=== PATIENT | female | born 1965 | race Caucasian/White ===

== ENCOUNTER 2017-01-06 07:11 | Emergency (ER) | payer OTHER ==
[2017-01-06 07:17] VITALS: RESP 18
[2017-01-06 07:55] LABS: RBC URINE < 1 /hpf (0-3); URINE BACTERIA RARE (<OCC); URINE BILIRUBIN NEGATIVE (NEGATIVE); URINE BLOOD NEGATIVE (NEGATIVE); URINE COLOR Yellow (YELLOW); URINE GLUCOSE (UA) NORMAL (Normal); URINE KETONE NEGATIVE (NEGATIVE); URINE LEUKOCYTE ESTERASE NEG Leu/uL (Negative); URINE PROTEIN NEGATIVE (NEGATIVE); URINE UROBILINOGEN NORMAL mg/dL (0.2-1.0); WBC URINE 1 /hpf (0-5)
[2017-01-06] MEDS ORDERED: Oxycodone/Acetaminophen 5/325 mg Tab PO STA (08:33)
[2017-01-06] MEDS ORDERED: Oxycodone/Acetaminophen 5/325 mg Tab ONE (08:41)
--- NOTE | 2017-01-06 10:10 | RAD ---
PROCEDURE: Radiographs of the Lumbar Spine. HISTORY: back pain COMPARISON: No prior. FINDINGS: BONES: Straightening of the normal lumbar lordosis is noted No fracture subluxation suggested. Endplate ridging L5 and minimal Schmorl's node indentations at all lump at L2-3 L3-4 and L4-5 is suggested. DISC SPACES: L5-S1 disc space narrowing OTHER FINDINGS: Moderate right stool retention IMPRESSION: No fracture or subluxation. Lumbar spine straightening Degenerative disc space narrowing and mild degenerative spondylosis L5-S1.
--- NOTE | 2017-01-06 10:34 | C.PDOC ---
History Of Present Illness 51 year old female presents to the ED with complaints of lower back pain for the past 2 days. Patient states she was seen by her PMD 2 days ago and was diagnosed with a UTI and given Cipro and Motrin. She has been compliant with the medication but now developed the back pain which is worse with movement. Denies pelvic pain, dysuria, radiation or pain, or any other complaints at this time. Time Seen by Provider: 01/06/17 08:03 Chief Complaint (Nursing): Back Pain History Per: Patient History/Exam Limitations: no limitations Onset/Duration Of Symptoms: Days Current Symptoms Are (Timing): Still Present Quality Of Discomfort: "Pain" Severity: Mild Associated Symptoms: None Exacerbating Factor(s): Movement Past Medical History Reviewed: Historical Data, Nursing Documentation, Vital Signs Vital Signs: Last Vital Signs Temp 97.8 F 01/06/17 11:15 Pulse 65 01/06/17 11:15 Resp 18 01/06/17 11:15 BP 128/81 01/06/17 11:15 Pulse Ox 100 01/06/17 11:15 - Medical History PMH: No Chronic Diseases Surgical History: Family History: States: Unknown Family Hx - Social History Hx Tobacco Use: No Hx Alcohol Use: No Hx Substance Use: No - Immunization History Hx Tetanus Toxoid Vaccination: No Hx Influenza Vaccination: No Hx Pneumococcal Vaccination: No Review Of Systems Except As Marked, All Systems Reviewed And Found Negative. Constitutional: Negative for: Fever, Chills Gastrointestinal: Negative for: Nausea, Vomiting, Abdominal Pain Genitourinary: Negative for: Dysuria, Frequency, Incontinence, Pelvic Pain Musculoskeletal: Positive for: Back Pain Neurological: Negative for: Weakness, Numbness Physical Exam - Physical Exam Appears: Non-toxic, No Acute Distress Skin: Normal Color, Warm, Dry Head: Atraumatic, Normacephalic Eye(s): bilateral: Normal Inspection Oral Mucosa: Moist Neck: Supple Chest: Symmetrical, No Deformity Cardiovascular: Rhythm Regular, No Murmur Respiratory: Normal Breath Sounds, No Accessory Muscle Use Gastrointestinal/Abdominal: Soft, No Tenderness Back: No CVA Tenderness, No Vertebral Tenderness, Paraspinal Tenderness (+ Bilateral paraspinal tenderness ), Other (+Difficulty bending, turning, and changing position.) Extremity: Normal ROM, No Deformity Neurological/Psych: Oriented x3, Normal Speech, Normal Cognition ED Course And Treatment O2 Sat by Pulse Oximetry: 98 (Room air) Pulse Ox Interpretation: Normal - Other Rad LS Spine AP/LAT X-Ray: Viewed By Me, Read By Radiologist Interpretation: Accession No. : [id number]. Patient Name / ID : SUSY CARRILLO / [id number]. Exam Date : 01/06/2017 08:40:53 ( Approved ). Study Comment : Sex / Age : F / 51Y. Creator : KARLIE FREDERICK. Dictator : Michelle Garcia V. Car Sweeper : Personal Lines Account Manager : Michelle Garcia V. Approver2 : Report Date : 01/06/2017 09:18:50. My Comment : *. PROCEDURE: Radiographs of the Lumbar Spine. HISTORY: back pain. COMPARISON: No prior. FINDINGS: BONES: Straightening of the normal lumbar lordosis is noted. No fracture subluxation suggested. Endplate ridging L5 and minimal Schmorl's node indentations at all lump at L2-3 L3-4 and L4-5 is suggested. DISC SPACES: L5-S1 disc space narrowing. OTHER FINDINGS: Moderate right stool retention. IMPRESSION: No fracture or subluxation. Lumbar spine straightening. Degenerative disc space narrowing and mild degenerative spondylosis L5-S1. Progress Note: LS Spine AP/LAT and Urinalysis ordered and reviewed. Patient treated with Percocet and Toradol. On reassessment, patient is resting comfortably, with improvement of back pain. Patient remains afebrile, with no bony tenderness, extremity numbness or weakness, or abdominal pain. Patient is ambulatory in the emergency department with no signs of discomfort. Rx given and patient was advised to follow up with her PMD in 1-2 days. Disposition - Disposition Referrals: Luis Araujo Jr., MD [Staff Provider] - Disposition: HOME/ ROUTINE Disposition Time: 11:05 Condition: STABLE Additional Instructions: Follow up with your PMD within 1-2 days. Return to ED if feel worse. 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 - Scribe Statement The provider has reviewed the documentation as recorded by the Scribe Sugar Gunn. All medical record entries made by the Scribe were at my direction and personally dictated by me. I have reviewed the chart and agree that the record accurately reflects my personal performance of the history, physical exam, medical decision making, and the department course for this patient. I have also personally directed, reviewed, and agree with the discharge instructions and disposition.
[2017-01-06 11:16] VITALS: BP 128/81; PULSE 65; TEMP 97.8
[2017-01-06 15:07] VITALS: O2SAT 98
== END 2017-01-06 11:19 | disposition home or self-care (01) ==
LOC: C.ER 07:11
DX: M54.5 Low back pain (principal)
CPT/HCPCS: 72100; 81001; 84703; 96372; 99285; J1885

== ENCOUNTER 2017-05-25 19:03 | Emergency (ER) | payer OTHER ==
[2017-05-25 20:36] VITALS: BP 169/91; PULSE 78; RESP 16; TEMP 97.9; O2SAT 98
[2017-05-25] MEDS ORDERED: DiphenhydrAMINE 50 mg/ml Inj IVP STA (20:45)
[2017-05-25] MEDS ORDERED: Sodium Chloride 0.9% 1,000 ML IV ONE (20:46)
[2017-05-25] MEDS ORDERED: DiphenhydrAMINE 50 mg/ml Inj ONE (20:58)
[2017-05-25] MEDS ORDERED: Sodium Chloride 0.9% 1,000 ML ONE (20:59)
--- NOTE | 2017-05-25 21:01 | C.PDOC ---
History Of Present Illness 52 yo female c/o bilateral eye swelling associated with discharge for 4 days. (+ ) sneezing (+) congestion. Notes she has been using Patanol drops without relief. (+) h/o similar symptoms in the past from "allergies" - notes allergic to a variety of environmental allergies. No SOB, difficulty breathing, difficulty swallowing, tongue swelling, or lip swelling. Time Seen by Provider: 05/25/17 20:39 Chief Complaint (Nursing): Eye Problem History Per: Patient, Family Onset/Duration Of Symptoms: Days Current Symptoms Are (Timing): Still Present Past Medical History Vital Signs: Last Vital Signs Temp 97.9 F 05/25/17 20:31 Pulse 78 05/25/17 20:31 Resp 16 05/25/17 20:31 BP 169/91 H 05/25/17 20:31 Pulse Ox 98 05/25/17 21:03 Surgical History: Family History: States: Unknown Family Hx - Social History Hx Tobacco Use: No Hx Alcohol Use: No Hx Substance Use: No - Immunization History Hx Tetanus Toxoid Vaccination: No Hx Influenza Vaccination: No Hx Pneumococcal Vaccination: No Review Of Systems Except As Marked, All Systems Reviewed And Found Negative. Constitutional: Negative for: Fever ENT: Negative for: Mouth Swelling, Throat Swelling Respiratory: Negative for: Shortness of Breath Physical Exam - Physical Exam Appears: Well, Non-toxic, No Acute Distress Skin: Warm, Dry Head: Atraumatic, Normacephalic Eye(s): bilateral: PERRL, EOMI, Eyelid Inflammation, Other ((+) periorbital swelling with discharge and conjunctiva injection) Ear(s): Bilateral: Normal Nose: Normal Oral Mucosa: Moist Throat: Normal, No Erythema, No Exudate, No Drooling Neck: Normal, Normal ROM, Supple Chest: Symmetrical Cardiovascular: Rhythm Regular Respiratory: Normal Breath Sounds Gastrointestinal/Abdominal: Normal Exam, Soft, No Tenderness Back: Normal Inspection Extremity: Normal ROM Neurological/Psych: Oriented x3, Normal Speech, Normal Cognition ED Course And Treatment O2 Sat by Pulse Oximetry: 98 Progress Note: Benadryl, SOlumedrol and Pepcid ordered. On re-evaluation, Patient is resting comfortably, tolerating PO, has no shortness of breath, has no intra-oral swelling, no stridor. Patient and daughter notes that swelling has improved. Pt requests to discharge. Patient was advised to avoid potential allergens, and to follow up with physician in 1-2 days. Disposition - Disposition Disposition: HOME/ ROUTINE Disposition Time: 21:58 Condition: STABLE Additional Instructions: Follow up with your primary medical doctor or clinic in 2-5 days for further evaluation. Take medications as prescribed. Return to the emergency department at any time if symptoms persist or worsen. Prescriptions: DiphenhydrAMINE [Benadryl] 25 mg PO Q6 #20 cap predniSONE [Prednisone] 40 mg PO DAILY #8 tab Tobramycin 0.3% [Tobramycin 5 Ml] 1 drop OP Q4 #1 bottle Instructions: General Allergic Reaction (ED) Forms: [facility] (Malay) - Clinical Impression Clinical Impression: Allergic reaction
== END 2017-05-25 22:29 | disposition home or self-care (01) ==
LOC: C.ER 19:03
DX: T78.40XA Allergy, unspecified, initial encounter (principal)
CPT/HCPCS: 96361; 96374; 96375; 99284; J1200; J2930; J7040

== ENCOUNTER 2018-08-21 12:17 | Emergency (ER) | payer OTHER ==
[2018-08-21] MEDS ORDERED: Sodium Chloride 0.9% 1,000 ML IV ONE (12:47)
[2018-08-21] MEDS ORDERED: Sodium Chloride 0.9% 1,000 ML ONE (13:13)
[2018-08-21 13:29] LABS: BASO % 0.3 % (0.0-2.0); EOS % 0.3 % (0.0-4.0); HEMOGLOBIN 12.9 g/dL (11.0-16.0); LYMPH # 0.9 K/uL (1.0-4.3); LYMPH % 14.1 % (20.0-40.0); MEAN CELL VOLUME 88.2 fL (81.0-99.0); MEAN CORPUSCULAR HEMOGLOBIN 30.2 pg (27.0-31.0); MEAN CORPUSCULAR HGB CONC 34.2 g/dL (33.0-37.0); MEAN PLATELET VOLUME 8.7 fL (7.2-11.7); MONO # 0.3 K/uL (0.0-0.8); MONO % 4.8 % (0.0-10.0); NEUT # 5.1 K/uL (1.8-7.0); NEUT % 80.5 % (50.0-75.0); RBC 4.28 Mil/uL (3.80-5.20); RED CELL DISTRIBUTION WIDTH 13.7 % (11.5-14.5); WHITE BLOOD COUNT 6.4 K/uL (4.8-10.8)
[2018-08-21 13:37] LABS: INR 1.2; PROTHROMBIN TIME 13.3 SECONDS (9.7-12.2)
[2018-08-21 13:43] LABS: ALB/GLOB RATIO 1.4 (1.0-2.1); ALT/SGPT 25 U/L (9-52); AST/SGOT 20 U/L (14-36); BLOOD UREA NITROGEN 13 mg/dL (7-17); CALCIUM 8.2 mg/dl (8.6-10.4); GFR NON-AFRICAN AMERICAN > 60; LIPASE 30 U/L (23-300)
[2018-08-21 13:44] LABS: SQUAMOUS EPITHIAL 13 /hpf (0-5); URINE BACTERIA OCC (<OCC); URINE BILIRUBIN NEGATIVE (NEGATIVE); URINE BLOOD NEGATIVE (NEGATIVE); URINE CLARITY Clear (Clear); URINE COLOR Yellow (YELLOW); URINE GLUCOSE (UA) NORMAL (Normal); URINE LEUKOCYTE ESTERASE NEG Leu/uL (Negative); URINE PROTEIN NEGATIVE (NEGATIVE); URINE UROBILINOGEN NORMAL mg/dL (0.2-1.0)
--- NOTE | 2018-08-21 13:54 | C.PDOC ---
History Of Present Illness 53 y/o female presents to the ED for evaluation of bodyaches, mild intermittent headaches, nausea, and diffuse abdominal pain since yesterday associated with non-bilious vomiting #1-2 episodes, and a few episodes of watery diarrhea for 2 days. Otherwise patient denies high fever, severe headache, dizziness, visual changes, neck pain, drooling, productive cough, SOB, chest pain, palpitation, hematemesis, melena, back pain, UTI sx. Ambulate to ED, not in nay apparent distress. Time Seen by Provider: 08/21/18 12:45 Chief Complaint (Nursing): GI Problem History Per: Patient History/Exam Limitations: no limitations Onset/Duration Of Symptoms: Days Current Symptoms Are (Timing): Still Present Location Of Pain/Discomfort: Diffuse Radiation Of Pain To:: None Associated Symptoms: Nausea, Vomiting, Diarrhea Past Medical History Reviewed: Historical Data, Nursing Documentation, Vital Signs Vital Signs: Last Vital Signs Temp 98.8 F 08/21/18 12:23 Pulse 90 08/21/18 12:23 Resp 18 08/21/18 12:23 BP 129/87 08/21/18 12:23 Pulse Ox 97 08/21/18 12:23 Surgical History: Other Surgeries: Tubal ligation Family History: States: Unknown Family Hx - Social History Hx Tobacco Use: No Hx Alcohol Use: No Hx Substance Use: No - Immunization History Hx Tetanus Toxoid Vaccination: No Hx Influenza Vaccination: No Hx Pneumococcal Vaccination: No Review Of Systems Constitutional: Negative for: Fever, Chills Cardiovascular: Negative for: Chest Pain Respiratory: Negative for: Cough, Shortness of Breath Gastrointestinal: Positive for: Nausea, Vomiting, Abdominal Pain, Diarrhea. Negative for: Hematochezia, Hematemesis Neurological: Negative for: Weakness, Numbness, Dizziness Physical Exam - Physical Exam Appears: Well, Non-toxic, No Acute Distress Skin: Normal Color, Warm, No Rash Head: Normacephalic Eye(s): bilateral: PERRL Nose: No Flaring, No Discharge Oral Mucosa: Moist Throat: No Erythema, No Exudate Neck: Trachea Midline, Supple Cardiovascular: Rhythm Regular, No Murmur, No JVD Respiratory: No Decreased Breath Sounds, No Accessory Muscle Use, No Rales, No Rhonchi, No Stridor, No Wheezing Gastrointestinal/Abdominal: Soft, Tenderness (mild epigastric tenderness), No Distention, No Guarding, No Rebound Back: No CVA Tenderness Extremity: Normal ROM, No Pedal Edema, No Deformity Neurological/Psych: Oriented x3, Normal Speech, Normal Cognition Gait: Steady ED Course And Treatment - Laboratory Results Result Diagrams: 18 13:23 1218 13:23 Lab Interpretation: No Acute Changes O2 Sat by Pulse Oximetry: 97 (RA) Pulse Ox Interpretation: Normal Progress Note: Blood work, UA, flu swab ordered. Administered IV fluids, 4 mg Zofran, 40 mg Protonix, 20 mg Pepcid, and 30 mg Toradol. Pt was OBS in ED for 3 hours and reports moderate improvement in sx. on re-eval, pt is afebrile, hemodynamicaly stable. Non-toxic, tolerate Po well in ED. neck: Supple, (-) carodid bruits B/L. Lungs: CTA B/L, BS equal B/L. CVS: (+)S1S2, reg. Abd: benign, (-) guarding, (-) rebound, (-) localized tenderness. back: (-) CVA tenderness. neuorlogicaly intact. Blood work review and appears without acute abnormalities, no acute leukocytosis or left shift, no evidence of dehydration. UA (+) nitrate. Rocephic given IV empirically. Ucx- pending. Pt has clinical findings c/w UTI, N/V. Pt advised. ref. to f/u with PMD in 2-3 days for re- eval. return if any new changes. Disposition Counseled Patient/Family Regarding: Studies Performed, Diagnosis, Need For Followup, Rx Given - Disposition Disposition: HOME/ ROUTINE Disposition Time: 14:45 Condition: STABLE Additional Instructions: Encourage fluids Take medication as prescribed Follow up with PMD in 2-3 days for re-evaluation. return to ED if any worsening or new changes. 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 - Scribe Statement The provider has reviewed the documentation as recorded by the Scribe Kylah Foote All medical record entries made by the Scribe were at my direction and personally dictated by me. I have reviewed the chart and agree that the record accurately reflects my personal performance of the history, physical exam, medical decision making, and the department course for this patient. I have also personally directed, reviewed, and agree with the discharge instructions and disposition.
[2018-08-21] MEDS ORDERED: cefTRIAXone 1 gm 1 GM/100 ML BAG IVPB ONE (15:01)
[2018-08-21 16:22] VITALS: BP 129/80; PULSE 72; RESP 20; TEMP 98.6
[2018-08-21 16:23] VITALS: O2SAT 97
== END 2018-08-21 16:25 | disposition home or self-care (01) ==
LOC: C.ER 12:17
DX: N39.0 Urinary tract infection, site not specified (principal)
CPT/HCPCS: 80053; 81001; 83690; 85025; 85610; 85730; 87086; 87804; 96361; 96365; 96375; 99284; C9113; J0696; J1885; J2405; J7030